=== PATIENT | female | born 1955 | race Hispanic/Latino ===

== ENCOUNTER 2022-10-21 15:33 | Outpatient (CLI) | payer MEDICARE, MEDICAID | END 2022-10-21 15:34 | disposition home or self-care (01) | LOC: CSHLAB 15:33 | PROVIDERS: ATTEND Student in an Organized Health Care Education/Training Program | DX: Z01.818 Encounter for other preprocedural examination (principal) | CPT/HCPCS: 93005; 93010 ==

== ENCOUNTER 2022-10-26 06:04 | Day surgery (SDC) | payer MEDICARE, MEDICAID ==
[2022-10-21 17:23] LABS: Hemoglobin 13.8 g/dL (12.0-15.5); Mean Corpuscular HGB CONC 32.7 g/dL (32.0-36.0); Mean Corpuscular Hemoglobin 29.2 pg (27.0-33.0); Mean Corpuscular Volume 89.2 fl (81.6-98.3); Mean Platelet Volume 11.4 fl (7.4-10.4); Platelet Count 225 10x3/uL (150-450); RBC Distribution Width 12.7 % (11.5-14.5); Red Blood Cell (RBC) Count 4.73 10x6/uL (3.90-5.03); White Blood Cell (WBC) Count 9.2 10x3/uL (3.5-10.5)
[2022-10-25 11:45] VITALS: BMI 30.2
[2022-10-26] MEDS ORDERED: Lidocaine 4% Topical Sol 50 ML BOT ONE (06:33)
[2022-10-26] MEDS ORDERED: Gabapentin 300 MG CAP ONE (06:34)
[2022-10-26] MEDS ORDERED: PROPOFOL 20 ML ONE ×2 (06:35→08:39)
[2022-10-26] MEDS ORDERED: Midazolam HCl 2 mg/2 ml Vial ONE ×2 (06:35→07:25)
[2022-10-26] MEDS ORDERED: Lidocaine 1% PF 5 ML VIAL ONE ×2 (06:35→06:36)
[2022-10-26] MEDS ORDERED: Ondansetron PF 4 MG/2 ML Vial ONE (06:35)
[2022-10-26] MEDS ORDERED: Fentanyl 250 MCG/5 ML VIAL ONE (06:35)
[2022-10-26] MEDS ORDERED: CeleCOXIB 100 MG CAP ONE (06:35)
[2022-10-26] MEDS ORDERED: Rocuronium Bromide 10 MG/ML (10ML VIAL) ONE (06:35)
[2022-10-26] MEDS ORDERED: Famotidine/PF 20 mg/2ml Vial ONE (06:35)
[2022-10-26] MEDS ORDERED: Glycopyrrolate 0.2 MG/ML 5 ML SYRINGE ONE (06:36)
[2022-10-26] MEDS ORDERED: Ketorolac Tromethamine 30 MG/ML VIAL ONE (06:36)
[2022-10-26] MEDS ORDERED: Bupivacaine HCl 0.5%/Epinephrine 1:200,000/PF 30 ml Vial ONE (06:40)
[2022-10-26] MEDS ORDERED: CEFAZOLIN 2 GM VIAL ONE (07:29)
[2022-10-26 07:35] LABS: Anion Gap 14 mmol/L (10-20); BUN (Urea Nitrogen) 21 mg/dL (9.8-20.1); Calc. Creatinine Clearance 95 mL/min (70-130); Calcium 8.9 mg/dL (7.8-10.44); Carbon Dioxide 21 mmol/L (23-31); Chloride 107 mmol/L (98-107); Estimated GFR 96; Glucose 99 mg/dL (80-115); Sodium 138 mmol/L (136-145)
[2022-10-26 07:45] LABS: Potassium 4.1 mmol/L (3.5-5.1)
[2022-10-26] MEDS ORDERED: Lidocaine 1% w/Epinephrine 1:100K 20 ML VIAL ONE (08:41)
[2022-10-26] MEDS ORDERED: Lidocaine 1% w/Epinephrine 1:100K 30 ML VIAL ONE (09:19)
[2022-10-26] MEDS ORDERED: Meperidine HCl/PF 25 MG/ML VIAL ONE (09:58)
[2022-10-26] MEDS ORDERED: Tranexamic Acid 1,000 MG/10 ML VIAL ONE ×2 (09:59→10:00)
[2022-10-26] MEDS ORDERED: Acetaminophen 325 MG TAB PO PRN (10:25)
[2022-10-26] MEDS ORDERED: Simethicone Chewable 80 MG TAB PO PRN (10:25)
[2022-10-26] MEDS ORDERED: Promethazine HCl 25 MG/ML VIAL IM PRN (10:25)
[2022-10-26] MEDS ORDERED: Zolpidem Tartrate 5 MG TAB PO PRN (10:25)
[2022-10-26] MEDS ORDERED: Ondansetron PF 4 MG/2 ML Vial IVP PRN (10:25)
[2022-10-26] MEDS ORDERED: HYDROcodone/Acetaminophen 5/325 mg Tablet PO PRN ×2 (10:25)
[2022-10-26] MEDS ORDERED: Bisacodyl 10 MG SUPP PR PRN (10:25)
[2022-10-26] MEDS ORDERED: diphenhydrAMINE 25 MG CAP PO PRN (10:25)
[2022-10-26] MEDS ORDERED: fentaNYL 50 mcg/mL 1 mL Vial SLOW IVP PRN (11:45)
[2022-10-26] MEDS: Ketorolac Tromethamine 30 MG/ML VIAL IVP SCH ×2 (13:58→19:54)
[2022-10-26] MEDS: Lactated Ringer's 1,000 ML IV SCH (19:55)
[2022-10-27] MEDS: Ketorolac Tromethamine 30 MG/ML VIAL IVP SCH ×2 (01:39→08:07)
[2022-10-27 04:14] LABS: Hemoglobin 11.5 g/dL (12.0-15.5); Mean Corpuscular HGB CONC 33.3 g/dL (32.0-36.0); Mean Corpuscular Hemoglobin 29.6 pg (27.0-33.0); Mean Corpuscular Volume 88.7 fl (81.6-98.3); Mean Platelet Volume 11.4 fl (7.4-10.4); Platelet Count 190 10x3/uL (150-450); RBC Distribution Width 12.7 % (11.5-14.5); Red Blood Cell (RBC) Count 3.89 10x6/uL (3.90-5.03); White Blood Cell (WBC) Count 13.1 10x3/uL (3.5-10.5)
[2022-10-27] MEDS: Lactated Ringer's 1,000 ML IV SCH (06:03)
[2022-10-27] MEDS ORDERED: Hydrochlorothiazide 25 MG TAB PO SCH (09:00)
[2022-10-27 12:24] VITALS: BP 148/80; TEMP 97.8
[2022-10-31] MEDS ORDERED: Ibuprofen 600 MG TAB PO SCH (14:00)
== END 2022-10-27 13:34 | disposition home or self-care (01) ==
LOC: CSHSDC 06:04 → CSHPED 11:35 → CSHSDC 10-27 13:34
PROVIDERS: ATTEND Student in an Organized Health Care Education/Training Program
PROC: 0UT94ZZ Resection of Uterus, Percutaneous Endoscopic Approach (ICD-10-PCS; principal; 2022-10-26)
PROC: 0UT24ZZ Resection of Bilateral Ovaries, Percutaneous Endoscopic Approach (ICD-10-PCS; 2022-10-26)
PROC: 0UT74ZZ Resection of Bilateral Fallopian Tubes, Percutaneous Endoscopic Approach (ICD-10-PCS; 2022-10-26)
DX: D26.1 Other benign neoplasm of corpus uteri (principal); N81.2 Incomplete uterovaginal prolapse; N83.312 Acquired atrophy of left ovary; N83.311 Acquired atrophy of right ovary; I10 Essential (primary) hypertension; Z90.49 Acquired absence of other specified parts of digestive tract; Z79.899 Other long term (current) drug therapy
CPT/HCPCS: 58571; 80048; 85027 ×2; 86850; 86900; 86901; C1713; J3010; Q9968; 36415; 88305; J1885; J2175; J2250; J2405; J2704; S0028